=== PATIENT | female | born 1980 | race Caucasian/White ===

== ENCOUNTER 2023-04-14 22:28 | Emergency (ER) | payer BC, OTHER ==
[2023-04-14 22:56] VITALS: RESP 16; TEMP 98
[2023-04-14] MEDS ORDERED: Norflex 60 MG/2 ML IM ONE (23:20)
[2023-04-14] MEDS ORDERED: TORAdol 30 mg Injection IM ONE (23:20)
[2023-04-14] MEDS ORDERED: Norflex 60 MG/2 ML ONE (23:32)
[2023-04-14] MEDS ORDERED: TORAdol 30 mg Injection ONE (23:32)
--- NOTE | 2023-04-14 23:41 | ERPHSYRPT ---
- History of Present Illness Time Seen by Provider: 04/14/23 22:38 Source: patient Exam Limitations: no limitations Patient Subjective Stated Complaint: Patient reports she was previously on amoxicillin for 10 days to treat a suspected sinus infection. She had finished antibiotic and on Sunday, approx 2-3 days after finishing antibiotic, patient started experiencing body aches and temp as high as 102F. Patient is currently on augmentin 875 bid x7 days, on day 3. She has been having right lower back pain that has continued to worsen, pain described as throbbing and radiates to right side of groin. Denies any vomiting, has had nausea. Also has had diarrhea x2 days. Triage Nursing Assessment: Pt alert and oriented x3. Respirations easy/nonlabored. Skin w/p/d. Accompanied by significant other. Pt restless in bed, holding right side of lower back. Denies any tenderness to right lower back with palpation. Rates pain 8/10. Physician History: 42 years old female with history of chronic back pain presented in the ER with chief complaint of right lower back pain with some radiation to the right lateral thigh area moderate to severe sharp for the last couple of days with progressive worsening. Patient reports no midline back pain. No numbness tingling or weakness of lower extremities. No loss of bowel or bladder control. No fall or trauma reported. Patient does report having URI symptoms for the last few days and has finished course of amoxicillin and currently on Augmentin. She has no abdominal pain nausea vomiting or diarrhea. Denies any urinary complaints. She has been taking [id number] pain medications with no significant relief. Allergies/Adverse Reactions: No Known Drug Allergies Allergy (Unverified 04/14/23 22:47) Home Medications: Alprazolam [Alprazolam ER] 1 tab PO BID PRN 04/14/23 [History] Amox Tr/Potass Clav. 875 mg [Augmentin 875-125 Tablet] 1 tab PO BID 04/14/23 [History] Fluoxetine HCl 40 mg PO DAILY 04/14/23 [History] Levothyroxine Sodium [Tirosint-Keyla] 100 mcg PO DAILY 04/14/23 [History] Methylphenidate HCl [Concerta] 1 tab PO DAILY 04/14/23 [History] Hx Tetanus, Diphtheria Vaccination/Date Given: Yes Hx Influenza Vaccination/Date Given: No Travel Risk - International Travel Have you traveled outside of the country in past 3 weeks: No - Coronavirus Screening Are you exhibiting any of the following symptoms?: Yes Symptoms: Cough: New Onset, Headaches/Body Aches/Fatigue Close contact with a COVID-19 positive Pt in past 14-21 Days: No - Vaccine Status Have you recieved a Covid-19 vaccination: Yes 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 - Review of Systems Constitutional: No Symptoms Eyes: No Symptoms Respiratory: No Symptoms Cardiac: No Symptoms Abdominal/Gastrointestinal: No Symptoms Musculoskeletal: Back Pain Skin: No Symptoms Neurological: No Symptoms Endocrine: No Symptoms Hematologic/Lymphatic: No Symptoms - Past Medical History Pertinent Past Medical History: Yes Neurological History: Epilepsy Cardiac History: No Pertinent History Respiratory History: No Pertinent History Endocrine Medical History: Hypothyroidism GI Medical History: No Pertinent History History: No Pertinent History - Past Surgical History Past Surgical History: Yes Female Surgical History: Tubal Ligation, Other Other Surgical History: ablation, mass removed right lower back, exploratory surgeries for endometriosis and cysts, breast reduction - Social History Smoking Status: Former smoker Exposure to second hand smoke: Yes Drug Use: marijuana Patient Lives Alone: No - Female History Hx Last Menstrual Period: one week ago, ablation Hx Now: No - Nursing Vital Signs Nursing Vital Signs: Initial Vital Signs Temperature 98 F 04/14/23 22:38 Pulse Rate 89 04/14/23 22:38 Respiratory Rate 16 04/14/23 22:38 Blood Pressure 141/96 04/14/23 22:38 O2 Sat by Pulse Oximetry 99 04/14/23 22:38 Pain Scale Pain Intensity [Right Lower 8 Back] Pain Intensity 5 - Physical Exam General Appearance: no apparent distress, alert Eye Exam: PERRL/EOMI Ears, Nose, Throat Exam: pharyngeal erythema Neck Exam: normal inspection, full range of motion Respiratory Exam: normal breath sounds, lungs clear Cardiovascular Exam: regular rate/rhythm, normal heart sounds Gastrointestinal Exam: soft, normal bowel sounds, No tenderness Back Exam: normal inspection, normal range of motion, muscle spasm, point tenderness (Right sacroiliac area), No CVA tenderness, No vertebral tenderness Extremity Exam: normal inspection, normal range of motion, other (Negative straight leg raising test on the right. Negative straight leg raising test on the left at 90 degrees as well. Plantars downgoing. 2+ Achilles and patellar reflexes symmetrical.) Neurologic Exam: alert, oriented x 3, cooperative, resin filterer II-XII nml as tested Skin Exam: normal color SpO2 Interpretation: normal SpO2: 99 O2 Delivery: Room Air Ordered Tests: Medication Summary Discontinued Medications Generic Name Dose Route Start Last Admin Trade Name Xena PRN Reason Stop Dose Admin Ketorolac Tromethamine 30 mg 04/14/23 23:20 04/14/23 23:33 Ketorolac Tromethamine 30 Mg/Ml Inj IM 04/14/23 23:21 30 mg STAT ONE Administration Ketorolac Tromethamine Confirm 04/14/23 23:32 Ketorolac Tromethamine 30 Mg/Ml Inj Administered 04/14/23 23:33 Dose 30 mg .ROUTE .STK-MED ONE Orphenadrine Citrate 60 mg 04/14/23 23:20 04/14/23 23:33 Orphenadrine Citrate 60 Mg/2 Ml Vial IM 04/14/23 23:21 60 mg STAT ONE Administration Orphenadrine Citrate Confirm 04/14/23 23:32 Orphenadrine Citrate 60 Mg/2 Ml Vial Administered 04/14/23 23:33 Dose 60 mg .ROUTE .STK-MED ONE - Progress Progress: improved, re-examined Progress Note: 04/15/23 00:42 42 years old female with history of chronic back pain presented in the ER with chief complaint of right lower back pain with some radiation to the right lateral thigh area moderate to severe sharp for the last couple of days with progressive worsening. Patient reports no midline back pain. No numbness tingling or weakness of lower extremities. No loss of bowel or bladder control. No fall or trauma reported. Patient does report having URI symptoms for the last few days and has finished course of amoxicillin and currently on Augmentin. She has no abdominal pain nausea vomiting or diarrhea. Denies any urinary complaints. She has been taking [id number] pain medications with no significant relief. Patient has no cauda equina symptoms. Do not think needs imaging. She is given symptomatic treatment, reevaluation feeling better. Will place her on NSAIDs and muscle relaxants to go home. She is advised to continue with antibiotics for her URI with cough symptoms. Discussed signs symptoms of worsening needing return to ER which she seems understanding. Stable for discharge. Counseled pt/family regarding: diagnosis, need for follow-up Medical Desision Making - Independent Historian Additional History obtained from: Spouse - Risk of complications The pt has a mod risk of morbidity or mortality based on: Need for prescription drug management - Departure Departure Disposition: Home Clinical Impression: Low back strain Condition: Stable Critical Care Time: No Referrals: MARIA INES SOLANO JR [Primary Care Provider] - Follow up with PCP 1 day Instructions: Low Back Pain (DC) Additional Instructions: Take pain medications as needed. Follow-up with primary care for reevaluation. Return to ER for intractable pain, numbness tingling weakness of lower extremities, loss of bowel or bladder control etc. Prescriptions: Cyclobenzaprine HCl 10 mg [Flexeril 10 MG] 10 mg PO TID #20 tablet Diclofenac Sodium 50 mg PO TID PRN 7 Days #20 tab PRN Reason: Pain
[2023-04-15 00:08] VITALS: BP 109/85; PULSE 71
[2023-04-15 00:34] VITALS: O2SAT 99
== END 2023-04-15 01:07 | disposition home or self-care (01) ==
LOC: ED 22:28
DX: S39.012A Strain of muscle, fascia and tendon of lower back, initial encounter (principal); Z79.899 Other long term (current) drug therapy
CPT/HCPCS: 96372; 99283; J1885; J2360